=== PATIENT | male | born 1995 | race Caucasian/White ===

== ENCOUNTER 2020-06-30 08:48 | Emergency (ER) | payer MEDICAID ==
[~2020-06-30] VITALS: Ht 175.3 cm; Wt 112.0 kg
[2020-06-30 08:55] VITALS: BP 137/73
--- NOTE | 2020-06-30 08:55 | NUR ---
Patient ambulated to bed 8. RN evaluating the patient at bedside.
--- NOTE | 2020-06-30 08:55 | NUR ---
PT AMBULATED TO BED 7, STEADY GAIT.
--- NOTE | 2020-06-30 09:01 | NUR ---
25 Y/M PRESENTS TO ED S/P FALL ON SATURDAY. PT REPORTS HE FELL AND LANDED ON HIS R HAND. PT REPORTS 6/10 SHARP PAIN ON AND OFF, THAT RADIATES UP TO ELBOW. RADIAL PULSES 2+, DENIES HEAD INJURY OR LOC. EDEMA TO R HAND, CAP REFILL LESS THAN 2 SECONDS. PMH- DENIES NKDA RX- DENIES
[2020-06-30] MEDS ORDERED: KETOROLAC 60 MG/2 ML VIAL IM ONE (09:05)
--- NOTE | 2020-06-30 09:11 | NUR ---
DR. SCHAFER AT BEDSIDE EVALUATING PT.
--- NOTE | 2020-06-30 09:14 | NUR ---
XR AT BEDSIDE.
[2020-06-30] MEDS ORDERED: ACET-8386 PO (09:41)
[2020-06-30] MEDS ORDERED: IBUP-2213 PO (09:41)
--- NOTE | 2020-06-30 09:44 | NUR ---
APPLIED ULNAR GUTTER SPLINT TO RIGHT HAND WITHOUT ANY ISSUES
[2020-06-30 09:57] VITALS: BP 137/73
--- NOTE | 2020-06-30 09:57 | NUR ---
Patient discharged with v/s stable. Written and verbal after care instructions given and explained. Patient alert, oriented and verbalized understanding of instructions. Ambulatory with steady gait. All questions addressed prior to discharge. ID band removed. Patient advised to follow up with PMD. Rx of IBUPROFEN AND HYDROCODONE/ACETAMINOPHEN given. Patient educated on indication of medication including possible reaction and side effects. Opportunity to ask questions provided and answered.
== END 2020-06-30 09:57 | disposition home or self-care (01) ==
LOC: MED 08:48
DX: S62.306A Unspecified fracture of fifth metacarpal bone, right hand, initial encounter for closed fracture (principal); W19.XXXA Unspecified fall, initial encounter; Y93.89 Activity, other specified; Y92.89 Other specified places as the place of occurrence of the external cause; Y99.8 Other external cause status
CPT/HCPCS: 29125; 73130; 96372; 99283; J1885

== ENCOUNTER 2023-02-27 08:12 | Emergency (ER) | payer SELFPAY ==
[~2023-02-27] VITALS: Ht 175.3 cm; Wt 109.3 kg
[~2023-02-27 08:12] MED LIST: ACET-8905 PO; IBUP-2213 PO
[2023-02-27 08:29] VITALS: BP 121/72; PULSE 77; RESP 18; TEMP 98.3; O2SAT 98
[2023-02-27] MEDS ORDERED: PRED20TA5 PO (09:44)
[2023-02-27] MEDS ORDERED: IBUP-2213 PO (09:44)
[2023-02-27 10:06] VITALS: BP 121/72; PULSE 77; RESP 18; TEMP 98.3; O2SAT 98
== END 2023-02-27 10:06 | disposition home or self-care (01) ==
LOC: MED 08:12
DX: J02.9 Acute pharyngitis, unspecified (principal); R06.02 Shortness of breath; F17.200 Nicotine dependence, unspecified, uncomplicated; Z79.899 Other long term (current) drug therapy; Z79.1 Long term (current) use of non-steroidal anti-inflammatories (NSAID)
CPT/HCPCS: 99283